=== PATIENT | male | born 1960 | race Caucasian/White ===

== ENCOUNTER 2020-09-16 06:51 | Day surgery (SDC) | payer BC ==
[2020-09-13 15:31] VITALS: BMI 27.8
[~2020-09-16 06:51] MED LIST: ACETAMINOPHEN TAB 500 MG TAB PO PRN; DEXAMETHASONE SOD PHOSPHATE 4 MG/ML 1 ML VIAL IV ONE; HEPARIN SODIUM,PORCINE 5,000 UNIT/ML 1 ML VIAL SQ PRN; LACTATED RINGERS 1,000 ML IV SCH; MIDAZOLAM 2 MG/2 ML VIAL IV PRN; ONDANSETRON 4 MG/2 ML VIAL IVP ONE; SCOPOLAMINE 1.5MG/72HR PATCH TRANSDERM ONE
[2020-09-16] MEDS ORDERED: LIDOCAINE 1% (10MG/ML) FOR IV START INTRADERMA ONE (07:43)
[2020-09-16 07:54] LABS: HCT 46.7 % (39.0-53.0); HGB 15.8 gm/dL (13.0-17.5); MCH 30.1 pg (25.0-35.0); MCHC 33.7 g/dL (31.0-37.0); MCV 89.2 fL (80.0-100.0); Mean Platelet Volume 7.1; Platelet Count 263 k/uL (150-450); RBC 5.24 m/uL (4.30-5.90); RDW 13.1 % (11.5-15.5); WBC 6.9 k/uL (3.8-10.6)
--- NOTE | 2020-09-16 08:41 | P.GSHP ---
History of Present Illness H&P Date: 09/16/20 Chief Complaint: left inguinal hernia 60-year-old male seen in the office in June. Patient has a history of prior open right inguinal hernia repair in 1999. Lately has had increasing bulge with discomfort left groin. Seen in the office found to have an inguinal hernia that was reducible. Here for operative repair. No tobacco use. No obesity. Past Medical History Past Medical History: Hypertension, Osteoarthritis (OA) History of Any Multi-Drug Resistant Organisms: None Reported Past Surgical History: Hernia Repair Additional Past Surgical History / Comment(s): RIGHT INGUINAL HERNIA SURGERY, COLONOSCOPY Past Anesthesia/Blood Transfusion Reactions: No Reported Reaction Smoking Status: Former smoker - Past Family History Mother Family Medical History: No Reported History Medications and Allergies Home Medications Medication Instructions Recorded Confirmed Type Ascorbic Acid [Vitamin C] 1,000 mg PO DAILY 09/13/20 09/13/20 History Aspirin 81 mg PO DAILY 09/13/20 09/13/20 History Cholecalciferol [Vitamin D3 (25 25 mcg PO DAILY 09/13/20 09/13/20 History Mcg = 1000 Iu)] lisinopriL [Prinivil] 20 mg PO DAILY 09/13/20 09/16/20 History Allergies Allergy/AdvReac Type Severity Reaction Status Date / Time No Known Allergies Allergy Verified 09/16/20 07:17 Surgical - Exam Vital Signs Temp Pulse Resp BP Pulse Ox 98.1 F 71 18 147/93 96 09/16/20 07:28 09/16/20 07:28 09/16/20 07:28 09/16/20 07:28 09/16/20 07:28 Physical exam: General: Well-developed, well-nourished HEENT: Normocephalic, sclerae nonicteric Abdomen: Nontender, nondistended, reducible left inguinal hernia Extremities: No edema Neuro: Alert and oriented Results - Labs 09/16/20 07:45 Assessment and Plan (1) Left inguinal hernia Narrative/Plan: 60-year-old male with left inguinal hernia. We'll proceed with laparoscopic da Kavita assisted left inguinal hernia repair with mesh, possible bilateral, possible open. Risks of bleeding, infection, recurrence, bladder and bowel injury, numbness, nerve injury, conversion to an open procedure were discussed with the patient. The patient understands and wishes to proceed. Current Visit: Yes Status: Acute Code(s): K40.90 - UNIL INGUINAL HERNIA, W/O OBST OR GANGR, NOT SPCF RECUR SNOMED Code(s): 215615117
[2020-09-16] MEDS ORDERED: NEOSTIGMINE 1 MG/ML 10 ML VIAL ONE (08:56)
[2020-09-16] MEDS ORDERED: fentaNYL (PF) 50 MCG/ML 2 ML AMP ONE (08:56)
[2020-09-16] MEDS ORDERED: LIDOCAINE 1% INJ 10MG/ML (20 ML MDV) ONE (08:56)
[2020-09-16] MEDS ORDERED: PROPOFOL 10 MG/ML 20 ML VIAL IV ONE (08:56)
[2020-09-16] MEDS ORDERED: SUCCINYLCHOLINE CHLORIDE 100 MG/5 ML SYR IV ONE (08:56)
[2020-09-16] MEDS ORDERED: MIDAZOLAM 2 MG/2 ML VIAL ONE (08:56)
[2020-09-16] MEDS ORDERED: KETOROLAC 15 MG/ML 1 ML VIAL ONE (08:56)
[2020-09-16] MEDS ORDERED: GLYCOPYRROLATE 0.2 MG/ML 2 ML VIAL ONE (08:56)
[2020-09-16] MEDS ORDERED: ROCURONIUM 10 MG/ML (5 ML VIAL) IV ONE (08:56)
[2020-09-16] MEDS ORDERED: BUPIVACAINE-EPI 0.5%-1:200,000 10 ML VIAL SQ ONE (08:58)
[2020-09-16 11:08] VITALS: TEMP 98
[2020-09-16] MEDS: HYDROmorphone 0.5 MG/0.5 ML SYRINGE IVP PRN ×2 (11:15→11:22)
[2020-09-16] MEDS ORDERED: TAMSULOSIN 0.4 MG CAP.ER.24H PO STA (11:17)
--- NOTE | 2020-09-16 11:17 | P.OP ---
Date of Procedure: 09/16/20 Procedure(s) Performed: PREOPERATIVE DIAGNOSIS: Left inguinal hernia POSTOPERATIVE DIAGNOSIS: Left indirect inguinal hernia, epiploic appendigitis PROCEDURE: Laparoscopic repair left inguinal hernia with the da Kavita robot assistance with mesh, excision ischemic epiploic appendagitis SURGEON: Mendoza MUNOZL: Minimal ANESTHESIA: General COMPLICATIONS: None OPERATIVE PROCEDURE: Patient was placed in the operating table in the supine position. The patient was placed under general anesthesia. The abdomen was p repped and draped in usual sterile fashion. A small curvilinear supraumbilical incision was made. The fascia was retracted anteriorly with Yany forceps. The Veress needle was inserted. The saline drop test was normal. Insufflation took place to 15 mmHg. An 8 mm trocar was placed into the peritoneal cavity. 2 additional 8 mm trochars were placed in the right upper quadrant and left upper quadrant under visualization. The robotic arms were then brought in and docked into place. The fenestrated bipolar was used in the left arm and the laparoscopic adriana was utilized in the right arm. A 30 8 mm scope was used in the up position. The peritoneal cavity was inspected. There was no evidence of recurrent hernia on the right side. The previously placed preperitoneal mesh on the right could be visualized through the peritoneum. There were no adhesions there. The patient had a ischemic portion of fat coming off of the sigmoid colon consistent with epiploic appendagitis. This was later excised using scissors and electrocautery and removed from the peritoneal cavity at the completion of the procedure with a 5 mm Endo Catch bag. This was sent to pathology for close evaluation. The appendix was visualized coming off of the cecum and appeared normal. The patient had evidence of a indirect hernia that was moderate sized on the left. The peritoneum was incised in a horizontal fashion cephalad to the internal inguinal ring. Following that careful dissection of the preperitoneal space took place. This took place using both electrocautery, sharp dissection but primarily blunt dissection. Visualization of the pubic tubercle and Dedrick's ligament took place medially. Full dissection took place laterally as well. There was significant induration at the inferior medial aspect of the internal inguinal ring/hernia sac. This was very difficult to dissect and required sharp dissection and electrocautery in order to do so. A large defect in the peritoneum occurred as a result of this difficult dissection. Once we had adequate space the [employer] extra-large 3-D mesh was advanced into the preperitoneal space and flattened out appropriately to cover all potential hernia sites. No sutures were used. The peritoneal defect was then closed using a locking 2-0 VLok suture. An additional 20V lock suture was used to reapproximate the defect in the peritoneum. The hernia sac itself was utilized in order to close this large defect. As stated above the portion of fat was excised with an Endo Catch bag through the umbilical trocar site. The fascia at this location was closed using a [id number] 0 Vicryl stitch. The pneumoperitoneum was then evacuated. The skin of all 3 sites was closed using a 4-0 Monocryl stitch. Skin glue was then applied. DISPOSITION: Stable to recovery room Disposition: same day
[2020-09-16] MEDS ORDERED: IV FLUID CONTINUATION 1,000 ML IV ONE (11:53)
[2020-09-16 11:55] VITALS: RESP 18
[2020-09-16] MEDS ORDERED: ACETAMINOPHEN TAB 325 MG TAB PO SCH (12:00)
[2020-09-16 12:31] VITALS: BP 146/89; PULSE 80
[2020-09-16] MEDS ORDERED: IBUPROFEN 600 MG TAB PO SCH (14:08)
== END 2020-09-16 13:01 | disposition home or self-care (01) ==
LOC: OR 06:51
PROVIDERS: ATTEND Surgery
DX: K40.90 Unilateral inguinal hernia, without obstruction or gangrene, not specified as recurrent (principal); K63.89 Other specified diseases of intestine; I10 Essential (primary) hypertension; M19.90 Unspecified osteoarthritis, unspecified site; Z79.82 Long term (current) use of aspirin; Z79.899 Other long term (current) drug therapy; Z98.890 Other specified postprocedural states; Z87.891 Personal history of nicotine dependence
CPT/HCPCS: 85027; 49650; 49329; C1781; J2250; J1644; J1100; J2710; J0690; J2405; J2001; J3010; J1885; J0330; J2704; J1170; 88302